=== PATIENT | female | born 1935 | race Two or more races ===

== ENCOUNTER 2023-04-03 14:34 | Inpatient (IN) | payer MEDICARE ==
[~2023-04-03] VITALS: Ht 149.9 cm; Wt 63.5 kg
[2023-04-03] MEDS ORDERED: MAGNESIUM HYDROXIDE 30 ML UDC PO PRN (17:00)
[2023-04-03] MEDS ORDERED: ZOLPIDEM TARTRATE 5 MG TABLET PO PRN (17:00)
[2023-04-03] MEDS ORDERED: MAG HYDROX/AL HYDROX/SIMETH 30 ML UDC PO PRN (17:00)
[2023-04-03] MEDS ORDERED: ACETAMINOPHEN 325 MG TABLET PO PRN (17:00)
[2023-04-03] MEDS ORDERED: LORAZEPAM 0.5 MG TABLET PO PRN (17:00)
[2023-04-03] MEDS ORDERED: LEVO75TA7 PO (18:12)
[2023-04-03 20:21] VITALS: BP 112/61; TEMP 97.7; O2SAT 99
[2023-04-04 08:00] VITALS: BP 128/77; TEMP 98.6; O2SAT 99
[2023-04-04 08:51] LABS: CHOLESTEROL 208 mg/dL (<200); HDL CHOLESTEROL 100 mg/dL (40-60); LDL 88 mg/dL (0-99); TRIGLYCERIDES 45 mg/dL (30-150)
[2023-04-04 08:53] LABS: ALANINE AMINOTRANSFERASE 15 U/L (12-78); ALBUMIN 3.3 g/dL (3.4-5.0); ALKALINE PHOSPHATASE 72 U/L (46-116); ASPARTATE AMINOTRANSFERASE 28 U/L (15-37); BILIRUBIN,TOTAL 0.5 mg/dL (0.2-1.0); CALCIUM, SERUM 9.2 mg/dL (8.5-10.1); CARBON DIOXIDE 25 mmol/L (21-32); CHLORIDE 103 mmol/L (98-107); CREATININE 0.8 mg/dL (0.6-1.3); GLUCOSE 83 mg/dL (74-106); POTASSIUM 4.5 mmol/L (3.5-5.1); SODIUM SERUM 135 mmol/L (136-145); TOTAL PROTEIN, SERUM 6.8 g/dL (6.4-8.2); UREA NITROGEN, BLOOD 21 mg/dL (7-18)
[2023-04-04 16:00] VITALS: BP 116/69; TEMP 98.4; O2SAT 98
[2023-04-04 20:00] VITALS: BP 116/43; TEMP 98.1; O2SAT 98
[2023-04-04] MEDS: QUETIAPINE FUMARATE 25 MG TABLET PO SCH ×2 (22:00→22:18)
[2023-04-05] MEDS ORDERED: LEVOTHYROXINE SODIUM 75 MCG TABLET PO SCH (07:30)
[2023-04-05 08:00] VITALS: BP 124/95; TEMP 97.4; O2SAT 99
[2023-04-05] MEDS: ESCITALOPRAM OXALATE (10 MG) 10 MG TABLET PO SCH ×2 (08:19→08:24)
== END 2023-04-05 12:35 | disposition home or self-care (01) | DRG 885 ==
LOC: GPS 16:04
PROVIDERS: ADMIT Psychiatry & Neurology Psychiatry; ATTEND Student in an Organized Health Care Education/Training Program
DX: F39 Unspecified mood [affective] disorder (principal); F03.92 Unspecified dementia, unspecified severity, with psychotic disturbance; F03.918 Unspecified dementia, unspecified severity, with other behavioral disturbance; E87.1 Hypo-osmolality and hyponatremia; E44.1 Mild protein-calorie malnutrition; F29 Unspecified psychosis not due to a substance or known physiological condition; E03.9 Hypothyroidism, unspecified; M19.90 Unspecified osteoarthritis, unspecified site; F60.9 Personality disorder, unspecified; F20.9 Schizophrenia, unspecified; E86.0 Dehydration; R79.89 Other specified abnormal findings of blood chemistry; Z81.8 Family history of other mental and behavioral disorders
CPT/HCPCS: 36415; 80053-TC; 80061-TC; 84443-TC

== ENCOUNTER 2023-05-29 22:19 | Inpatient (IN) | payer MEDICARE ==
[~2023-05-29] VITALS: Ht 149.9 cm; Wt 63.5 kg
[~2023-05-29 22:19] MED LIST: LEVO75TA7 PO
[2023-05-29] MEDS ORDERED: ACETAMINOPHEN 325 MG TABLET PO PRN (23:00)
[2023-05-29] MEDS ORDERED: MAG HYDROX/AL HYDROX/SIMETH 30 ML UDC PO PRN (23:00)
[2023-05-29] MEDS ORDERED: MAGNESIUM HYDROXIDE 30 ML UDC PO PRN (23:00)
[2023-05-29] MEDS: BLOOD SUGAR DIAGNOSTIC 1 EACH STRIP IN ONE (23:02)
[2023-05-29 23:48] VITALS: BP 109/60; TEMP 98.1; O2SAT 100
[2023-05-30] MEDS ORDERED: LORAZEPAM 0.5 MG TABLET PO PRN (06:30)
[2023-05-30] MEDS ORDERED: TEMAZEPAM 7.5 MG CAPSULE PO PRN (06:30)
[2023-05-30] MEDS: LEVOTHYROXINE SODIUM 75 MCG TABLET PO SCH (06:39)
[2023-05-30 08:00] VITALS: BP 113/77; TEMP 97.9; O2SAT 100
[2023-05-30 15:32] LABS: ALBUMIN 3.9 g/dL (3.4-5.0); BILIRUBIN,TOTAL 0.2 mg/dL (0.2-1.0); CALCIUM, SERUM 9.3 mg/dL (8.5-10.1); CREATININE 0.9 mg/dL (0.6-1.3); POTASSIUM 4.5 mmol/L (3.5-5.1); TOTAL PROTEIN, SERUM 7.4 g/dL (6.4-8.2)
[2023-05-30 15:35] LABS: CHOLESTEROL 220 mg/dL (<200); HDL CHOLESTEROL 117 mg/dL (40-60); LDL 78 mg/dL (0-99); TRIGLYCERIDES 44 mg/dL (30-150)
[2023-05-30 16:00] VITALS: BP 128/62; TEMP 98.1; O2SAT 98
[2023-05-30 20:00] VITALS: BP 102/59; TEMP 98.2; O2SAT 100
[2023-05-30] MEDS: QUETIAPINE FUMARATE 25 MG TABLET PO SCH (22:00)
[2023-05-31 08:00] VITALS: BP 107/88; TEMP 97.9; O2SAT 98
[2023-05-31] MEDS: ESCITALOPRAM OXALATE (10 MG) 10 MG TABLET PO SCH (08:27)
[2023-05-31 16:00] VITALS: BP 119/87; TEMP 97.7; O2SAT 98
[2023-05-31 20:00] VITALS: BP 118/81; TEMP 98.4; O2SAT 97
[2023-06-01 08:00] VITALS: BP 163/95; TEMP 98; O2SAT 100
== END 2023-06-01 11:40 | disposition left against medical advice (07) | DRG 885 ==
LOC: GPS 22:19
PROVIDERS: ADMIT Psychiatry & Neurology Psychiatry; ATTEND Nurse Practitioner Acute Care
DX: F33.3 Major depressive disorder, recurrent, severe with psychotic symptoms (principal); F03.94 Unspecified dementia, unspecified severity, with anxiety; F03.93 Unspecified dementia, unspecified severity, with mood disturbance; F03.92 Unspecified dementia, unspecified severity, with psychotic disturbance; M19.90 Unspecified osteoarthritis, unspecified site; F41.9 Anxiety disorder, unspecified; E03.9 Hypothyroidism, unspecified; Z73.6 Limitation of activities due to disability; F39 Unspecified mood [affective] disorder; F60.0 Paranoid personality disorder
CPT/HCPCS: 36415; 80053-TC; 80061-TC; 82962-TC